=== PATIENT | male | born 1955 | race Caucasian/White ===

== ENCOUNTER 2021-10-01 12:57 | Inpatient (IN) | payer MEDICARE, OTHER ==
[~2021-10-01] VITALS: Ht 175.3 cm; Wt 111.6 kg
[~2021-10-01 12:57] MED LIST: FISH OIL 1,2001 EACH PO
[2021-10-01] MEDS ORDERED: GABAPENTIN800 MG PO (13:24)
[2021-10-01] MEDS ORDERED: BASAGLAR K100 UNIT/1 SQ (13:24)
[2021-10-01] MEDS ORDERED: ATORVASTATIN CA40 MG PO (13:25)
[2021-10-01] MEDS ORDERED: GLIPIZIDE10 MG PO (13:25)
[2021-10-01] MEDS ORDERED: AMLODIPINE BESY10 MG PO (13:26)
[2021-10-01] MEDS ORDERED: LOSARTAN POTAS100 MG PO (13:26)
[2021-10-01] MEDS ORDERED: INVOKANA 100 M100 MG PO (13:26)
[2021-10-01] MEDS ORDERED: ZYLOPRIM 100 M100 MG PO (13:27)
[2021-10-01] MEDS ORDERED: GLUCOPHAGE XR500 M1 PO (13:27)
[2021-10-01] MEDS ORDERED: FAMOTIDINE20 MG PO (13:27)
[2021-10-01] MEDS ORDERED: ASPIRIN EC81 MG PO (13:28)
[2021-10-01 14:19] LABS: HEMOGLOBIN 14.1 gm/dl (14.0-17.5); RED BLOOD COUNT 4.93 M/UL (4.20-5.50); WHITE BLOOD COUNT 7.3 K/UL (4.5-11.0)
[2021-10-02 03:12] LABS: HEMOGLOBIN 13.6 gm/dl (14.0-17.5); RED BLOOD COUNT 4.83 M/UL (4.20-5.50); WHITE BLOOD COUNT 6.5 K/UL (4.5-11.0)
[2021-10-02 03:52] LABS: BUN/CREATININE RATIO 17 (0-10)
[2021-10-03 04:20] LABS: HEMOGLOBIN 13.9 gm/dl (14.0-17.5); RED BLOOD COUNT 4.88 M/UL (4.20-5.50); WHITE BLOOD COUNT 6.8 K/UL (4.5-11.0)
[2021-10-03 05:25] LABS: BUN/CREATININE RATIO 16 (0-10)
--- NOTE | 2021-10-03 21:30 | NUR ---
patient left floor at this time for procedure in surgery.
[2021-10-04 07:19] LABS: BUN/CREATININE RATIO 20 (0-10)
[2021-10-05] MEDS ORDERED: AMOX TR-K CLV1 EAC4 PO (10:02)
--- NOTE | 2021-10-05 11:55 | NUR ---
MARY EDUCATED ON WOUND CARE AT HOME. PATIENT GIVEN SUPPLIED PER REQUEST TO COMPLETE DRESSING CHANGES. PATIENT AND BOTH VERBALIZED UNDERSTANDING.
--- NOTE | 2021-10-05 12:54 | NUR ---
multiple attempts to call patient about phone left behind. no answer
== END 2021-10-05 12:13 | disposition home or self-care (01) | DRG 617 ==
LOC: M/S 12:57
PROVIDERS: Internal Medicine Infectious Disease; Physician Assistant; Podiatrist Foot & Ankle Surgery; ADMIT Internal Medicine
PROC: 0Y6T0Z0 Detachment at Right 3rd Toe, Complete, Open Approach (ICD-10-PCS; principal; 2021-10-03 19:45)
DX: E11.69 Type 2 diabetes mellitus with other specified complication (principal); E11.52 Type 2 diabetes mellitus with diabetic peripheral angiopathy with gangrene; I96 Gangrene, not elsewhere classified; M86.171 Other acute osteomyelitis, right ankle and foot; I12.9 Hypertensive chronic kidney disease with stage 1 through stage 4 chronic kidney disease, or unspecified chronic kidney disease; Z20.822 Contact with and (suspected) exposure to COVID-19; N17.9 Acute kidney failure, unspecified; E11.22 Type 2 diabetes mellitus with diabetic chronic kidney disease; L03.031 Cellulitis of right toe; N18.30 Chronic kidney disease, stage 3 unspecified; E78.5 Hyperlipidemia, unspecified; M10.9 Gout, unspecified; Z82.49 Family history of ischemic heart disease and other diseases of the circulatory system; Z79.899 Other long term (current) drug therapy; Z79.82 Long term (current) use of aspirin
CPT/HCPCS: 36415; 71045; 73718; 80048; 80053; 80202; 82962; 83036; 83735; 84100; 85025; 85610; 86140; 87040; 87070; 87077; 87186; 87205; 93005; 93926; J1100; J1335; J1885; J2001; J2405; J2704; J2795; J3010; J3370; J7070; J7120